=== PATIENT | male | born 1985 | race Caucasian/White ===

== ENCOUNTER 2019-01-12 07:14 | Emergency (ER) | payer BC ==
[2019-01-12 07:26] VITALS: BP 149/97
--- NOTE | 2019-01-12 07:33 | UC ---
Abdominal Pain Male HPI - HPI Summary HPI Summary: Patient presents to urgent care stating he's intermittently had dysuria for the last 10 days. Patient denies hematuria. No nausea or vomiting. No abdominal pain. Patient states he has had some fleeting discomfort in his left back. Patient states it's very brief and sharp. Patient denies any radiation. Patient denies any discomfort in his rectum. No problem with bowel movements. Patient denies any penile discharge. No pain in his penis or testicles. No pain with erection or ejaculation. Patient denies any concern for sexual transmitted infection. 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 Patient without history of trauma. Patients with Dr. Melgoza concerned that he may have a bladder infection. Patient has not contacted his PCP for this. Patient has not taken any analgesia. Patient's medications reviewed this visit. No family history of renal stones. - History of Current Complaint Chief Complaint: UCGU Stated Complaint: URINARY Time Seen by Provider: 01/12/19 07:32 Hx Obtained From: Patient Severity Currently: None Pain Intensity: 0 - Allergies/Home Medications Allergies/Adverse Reactions: Allergies Allergy/AdvReac Type Severity Reaction Status Date / Time No Known Allergies Allergy Verified 01/12/19 07:26 Home Medications: Home Medications Ibuprofen TAB* [Advil TAB*] 2 tab PO ONCE 01/12/19 [History Confirmed 01/12/19] PMH/Surg Hx/FS Hx/Imm Hx Previously Healthy: Yes GI/ History: Gastroesophageal Reflux - Surgical History Surgical History: Yes Surgery Procedure, Year, and Place: appendectomy - Family History Known Family History: Positive: Other - no FH renal colic, Non-Contributory - Social History Occupation: Employed Full-time Lives: With Family Alcohol Use: Occasionally Substance Use Type: Marijuana Substance Use Comment - Amount & Last Used: occasional Smoking Status (MU): Never Smoked Tobacco Amount Used/How Often: on/off Review of Systems All Other Systems Reviewed And Are Negative: Yes Constitutional: Positive: Negative Skin: Positive: Negative Eyes: Positive: Negative Physical Exam - Summary Physical Exam Summary: Vital Signs Reviewed: Yes A+Ox3, no distress Eyes: Conjunctiva Clear, MALCOLM. EOM intact and full ENT: Hearing grossly normal TM x 2 clear, mmoist, uvula midline, no exudate, no erythema Neck: Positive: Supple Respiratory: Positive: No respiratory distress, No accessory muscle use + CTA throughout no w/r Cardiovascular: RRR nl s1, s2 no m/r CBT <2 sec abd soft + BS nt/nd no guarding, no distension, no CVA Musculoskeletal Exam: ISSA x 4 without difficulty Strength Intact, ROM Intact Neurological: Positive: Alert, + sensation throughout Psychological: Positive: Normal Response To examiner Skin: Positive: no rash, no ecchymosis Triage Information Reviewed: Yes Vital Signs: Initial Vital Signs Temp 97.4 F 01/12/19 07:22 Pulse 69 01/12/19 07:22 Resp 14 01/12/19 07:22 BP 149/97 01/12/19 07:22 Pulse Ox 100 01/12/19 07:22 Abd Pain Male Course/Dx - Course Course Of Treatment: Patient presents to urgent care with intermittent dysuria for the last 10 days. Patient without any other complaints. Patient without any other symptoms, discharge, back pain, hematuria. Patient is in a monogamous relationship without concern for an STI. Patient without any rectal pain. On exam vital signs are stable. Patient with no concern exam. Tendon exam was deferred. Patient's urine was completely negative. I had a long discussion with patient about differential. We'll culture urine. Offered patient an ultrasound to look for renal stones or-. Patient declined as he has to get to work today. Discussed with patient pyridium. Recommend hydration. Motrin /Tylenol. Follow up with PCP as well as urology referral provided Strict return precautions. Patient states comfort agreement plan. I offered to talk to patient's was instructed this point he declined states he'll have her call with questions. Patient given a copy of results. Patient states understanding agreement with plan. elevated BP - recommend f/u with pcp - Differential Dx/Clinical Impression Provider Diagnosis: Dysuria Discharge ED - Sign-Out/Discharge Documenting (check all that apply): Patient Departure All imaging exams completed and their final reports reviewed: No Studies - Discharge Plan Condition: Stable Disposition: HOME Prescriptions: Phenazopyridine TAB* [Pyridium 100 mg TAB*] 100 mg PO TID PRN #10 tab PRN Reason: dysuria Patient Education Materials: Dysuria (ED) Referrals: Morales Lanier MD [Medical Doctor] - Aristeo JENSEN,Franko Mays [Primary Care Provider] - Additional Instructions: - stay well hydrated - drink plenty of non-alcoholic, non caffinated beverages - your urine will be further tested - if you require any changes to your treatment, we will contact you - this usually take 2 days - Contact your primary doctor to arrange a follow-up appointment next week. You also have a referral to a urologist - okay to schedule with this specialist if you are unable get an appointment with your doctor. Contact your doctor or return with questions or concerns - Take pyridium as prescribed for discomfort. This will make your urine blaze orange - this is normal - Okay to alternate ibuprofen (Advil, Motrin) and Tylenol every 3 hours for pain. Take with food - Call your doctor or return with questions or concerns- increased pain, fever, vomiting, or any other concerns - Billing Disposition and Condition Condition: STABLE Disposition: Home
[2019-01-12] MEDS ORDERED: Phenazopyridine TAB* 100 MG PO ONE (07:48)
== END 2019-01-12 07:57 | disposition home or self-care (01) ==
LOC: UCCORT 07:14
DX: R30.0 Dysuria (principal)
CPT/HCPCS: 81003; 87086; 99202; A9270-GY; G0463